=== PATIENT | male | born 1955 | race Caucasian/White ===

== ENCOUNTER 2021-10-04 00:31 | Emergency (ER) | payer SELFPAY ==
[2021-10-04 00:55] VITALS: BP 138/74
[2021-10-04] MEDS ORDERED: ONDANSETRON 4 MG/2 ML INJ IV ONE (01:02)
--- NOTE | 2021-10-04 01:35 | Emergency Department Report ---
HPI - General Chief Complaint: Dizziness Time Seen by Provider: 10/04/21 00:58 - HPI HPI: Room 25 The patient is a 66-year-old male present with a chief complaint of nausea vomiting and dizziness. Patient states he was at a barbecue when he suddenly b indy to feel nauseous and vomited several times. Patient states he felt short of breath and dizzy and had episode of diarrhea with brown stool. Patient states he felt diffusely weak and had to be helped to a chair. Patient denies ever having a headache or chest pain. Upon arrival to the ED the patient states he feels better ED Past Medical Hx - Past Medical History Previous Medical History?: Yes Additional medical history: GOUT - Surgical History Past Surgical History?: No - Family History Family history: no significant - Social History Smoking Status: Never Smoker Substance Use Type: None (Denies illicit drug use), Alcohol (48 ounces of beer daily) ED Review of Systems ROS: Stated complaint: DIZZINESS/NAUSEA/VOMITING Other details as noted in HPI Constitutional: no symptoms reported Eyes: denies: eye pain ENT: denies: throat pain Respiratory: shortness of breath Cardiovascular: denies: chest pain Endocrine: no symptoms reported Gastrointestinal: nausea, vomiting, hematemesis. denies: melena Genitourinary: denies: dysuria Musculoskeletal: denies: back pain Neurological: vertigo. denies: headache Physical Exam - Physical Exam Vital Signs: Vital Signs 10/04/21 10/04/21 00:36 00:50 Temperature 98 F 97.5 F L Pulse Rate 84 88 Respiratory 18 15 Rate Blood Pressure 138/74 Blood Pressure 138/80 [Left] O2 Sat by Pulse 97 95 Oximetry Physical Exam: GENERAL: The patient is well-developed well-nourished male lying on stretcher not appearing to be in acute distress. [] HEENT: Normocephalic. Atraumatic. Extraocular motions are intact. Patient has moist mucous membranes. No nystagmus noted NECK: Supple. Trachea midline CHEST/LUNGS: Clear to auscultation. There is no respiratory distress noted. HEART/CARDIOVASCULAR: Initially regular then irregularly irregular. There is no tachycardia. There is no gallop rub or murmur. ABDOMEN: Abdomen is soft, nontender. Patient has normal bowel sounds. There is no abdominal distention. SKIN: There is no rash. There is no edema. There is no diaphoresis. NEURO: The patient is awake, alert, and oriented. The patient is cooperative. The patient has no focal neurologic deficits. The patient has normal speech. Cranial nerves II through XII grossly intact. GCS 15 MUSCULOSKELETAL:There is no evidence of acute injury. ED Course Vital Signs 10/04/21 10/04/21 00:36 00:50 Temperature 98 F 97.5 F L Pulse Rate 84 88 Respiratory 18 15 Rate Blood Pressure 138/74 Blood Pressure 138/80 [Left] O2 Sat by Pulse 97 95 Oximetry ED Medical Decision Making - Lab Data Result diagrams: 10/04/21 01:13 10/04/21 01:13 Laboratory Tests 10/04/21 10/04/21 10/04/21 01:13 01:13 01:13 WBC 9.3 RBC 4.65 Hgb 13.9 Hct 41.8 MCV 90 MCH 30 MCHC 33 RDW 13.5 Plt Count 252 Lymph % (Auto) 14.5 [place] % (Auto) 6.6 Eos % (Auto) 0.5 Baso % (Auto) 0.2 Lymph # (Auto) 1.4 [place] # (Auto) 0.6 Eos # (Auto) 0.1 Baso # (Auto) 0.0 Seg Neutrophils % 78.2 H Seg Neutrophils # 7.3 PT 14.2 INR 0.99 APTT 28.0 Sodium 138 Potassium 4.1 Chloride 99.7 Carbon Dioxide 21 L Anion Gap 21 BUN 12 Creatinine 0.7 L Estimated GFR > 60 BUN/Creatinine Ratio 17 Glucose 102 H Calcium 9.5 Magnesium Total Bilirubin 0.60 AST 29 ALT 34 Alkaline Phosphatase 54 Total Creatine Kinase 339 H CK-MB (CK-2) 3.0 CK-MB (CK-2) Rel Index 0.8 Troponin T < 0.010 NT-Pro-B Natriuret Pep 15.48 Total Protein 7.5 Albumin 4.9 Albumin/Globulin Ratio 1.9 TSH Free T4 Plasma/Serum Alcohol 10/04/21 10/04/21 10/04/21 01:13 01:13 01:36 WBC RBC Hgb Hct MCV MCH MCHC RDW Plt Count Lymph % (Auto) [place] % (Auto) Eos % (Auto) Baso % (Auto) Lymph # (Auto) [place] # (Auto) Eos # (Auto) Baso # (Auto) Seg Neutrophils % Seg Neutrophils # PT INR APTT Sodium Potassium Chloride Carbon Dioxide Anion Gap BUN Creatinine Estimated GFR BUN/Creatinine Ratio Glucose Calcium Magnesium 1.80 Total Bilirubin AST ALT Alkaline Phosphatase Total Creatine Kinase CK-MB (CK-2) CK-MB (CK-2) Rel Index Troponin T NT-Pro-B Natriuret Pep Total Protein Albumin Albumin/Globulin Ratio TSH 0.471 Free T4 0.94 Plasma/Serum Alcohol 0.19 H - EKG Data -: EKG Interpreted by Me Rate: normal - EKG Data When compared to previous EKG there are: previous EKG unavailable Interpretation: other (Patient throwing couplets/bigeminy) - Radiology Data Radiology results: report reviewed (CT head), image reviewed (CT head) [facility] [address] [place] [address] Cat Scan Report Signed Patient: JESENIA WELSH MR#: [id number] : 1955 Acct:[id number] Age/Sex: 66 / M ADM Date: 10/04/21 Loc: ED Attending Dr: Ordering Physician: KANDICE MELVIN MD Date of Service: 10/04/21 Procedure(s): CT head/brain wo con Accession Number(s): [id number] cc: KANDICE MELVIN MD CT HEAD WITHOUT CONTRAST INDICATION / CLINICAL INFORMATION: Dizziness, nausea/vomiting. TECHNIQUE: CT head was performed without administration of intravenous contrast. All CT scans at this location are performed using CT dose reduction for ALARA by means of automated exposure control. COMPARISON: None available. FINDINGS: CEREBRAL HEMISPHERES: Generalized atrophy and bilateral regions of periventricular white matter hypoattenuation compatible with microvascular ischemia are demonstrated. No midline shift. Basal cisterns patent. HEMORRHAGE: None. CEREBELLUM / BRAINSTEM: No significant abnormality. ORBITS: No significant abnormality. SOFT TISSUES: No significant abnormality. SKULL: No significant abnormality. PARANASAL SINUSES / MASTOID AIR CELLS: Normal as visualized. ADDITIONAL FINDINGS: None. IMPRESSION: 1. No acute intracranial abnormality. Signer Name: Salazar Mock II, MD Signed: 10/04/2021 1:35 AM Workstation N [place]: [id number] Transcribed By: SOLO Dictated By: SALAZAR MOCK II, MD Electronically Authenticated By: SALAZAR MOCK II, MD Signed Date/Time: 10/04/21134 DD/ 2 TD/TT: - Medical Decision Making Discussed with patient and daughter at bedside my concern for the patient's rhythm as well as his presentation. Explained to the patient and the daughter at bedside my recommendation that the patient be admitted to the hospital for further observation. Patient verbalized understanding. The daughter attempted to convince the patient to stay in the hospital however the patient refuses. Patient states he would like to leave AGAINST MEDICAL ADVICE. Patient told to return to the emergency department immediately should he change his mind. - Differential Diagnosis Dysrhythmia, vertigo, symptomatic anemia, GI bleed, Critical care attestation.: If time is entered above; I have spent that time in minutes in the direct care of this critically ill patient, excluding procedure time. ED Disposition Clinical Impression: Nausea & vomiting, Dizziness Disposition: 07 LEFT AGAINST MEDICAL ADVICE Is pt being admited?: No Does the pt Need Aspirin: No Condition: Undetermined Time of Disposition: 02:49 (Patient leaving AMA)
--- NOTE | 2021-10-04 01:39 | Cat Scan Report ---
CT HEAD WITHOUT CONTRAST INDICATION / CLINICAL INFORMATION: Dizziness, nausea/vomiting. TECHNIQUE: CT head was performed without administration of intravenous contrast. All CT scans at this location are performed using CT dose reduction for ALARA by means of automated exposure control. COMPARISON: None available. FINDINGS: CEREBRAL HEMISPHERES: Generalized atrophy and bilateral regions of periventricular white matter hypoa ttenuation compatible with microvascular ischemia are demonstrated. No midline shift. Basal cisterns patent. HEMORRHAGE: None. CEREBELLUM / BRAINSTEM: No significant abnormality. ORBITS: No significant abnormality. SOFT TISSUES: No significant abnormality. SKULL: No significant abnormality. PARANASAL SINUSES / MASTOID AIR CELLS: Normal as visualized. ADDITIONAL FINDINGS: None. IMPRESSION: 1. No acute intracranial abnormality. Signer Name: Sawyer Mock II, MD Signed: 10/04/2021 1:35 AM Workstation Name: [id number]
[2021-10-04 01:43] LABS: Alanine Aminotransferase 34 units/L (7-56); Albumin 4.9 g/dL (3.9-5); Blood Urea Nitrogen 12 mg/dL (9-20); Calcium 9.5 mg/dL (8.4-10.2); Hemolysis Index 14
[2021-10-04 01:54] LABS: Free T4 (Free Thyroxine) 0.94 ng/dL (0.76-1.46)
[2021-10-04 01:57] LABS: Basophils % (Auto) 0.2 % (0.0-1.8); Eosinophils # (Auto) 0.1 K/mm3 (0.0-0.4); Eosinophils % (Auto) 0.5 % (0.0-4.3); Hematocrit 41.8 % (35.5-45.6); Hemoglobin 13.9 gm/dl (11.8-15.2); Lymphocytes # (Auto) 1.4 K/mm3 (1.2-5.4); Lymphocytes % (Auto) 14.5 % (13.4-35.0); Mean Corpuscular HGB Conc 33 % (32-34); Mean Corpuscular Volume 90 fl (84-94); Monocytes # (Auto) 0.6 K/mm3 (0.0-0.8); Monocytes % (Auto) 6.6 % (0.0-7.3); Platelet Count 252 K/mm3 (140-440); Red Blood Count 4.65 M/mm3 (3.65-5.03); Red Cell Distribution Width 13.5 % (13.2-15.2)
[2021-10-04 02:06] LABS: BUN/Creatinine Ratio 17
[2021-10-04 02:29] LABS: INR 0.99 (0.87-1.13)
--- NOTE | 2021-10-05 13:35 | Electrocardiograph Report ---
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
== END 2021-10-04 02:50 | disposition left against medical advice (07) ==
LOC: ED 00:31
DX: R11.2 Nausea with vomiting, unspecified (principal); R42 Dizziness and giddiness; R19.7 Diarrhea, unspecified; M10.9 Gout, unspecified; Z79.899 Other long term (current) drug therapy; R79.1 Abnormal coagulation profile
CPT/HCPCS: 36415; 70450; 80053; 82550; 82553; 83735; 83880; 84439; 84443; 84484; 85025; 85610; 85730; 93005; 99284; J2405; 80320; G0480